=== PATIENT | female | born 1960 | race Caucasian/White ===

== ENCOUNTER 2017-01-19 13:52 | Outpatient (CLI) | payer OTHER ==
--- NOTE | 2017-01-19 15:49 | MMO ---
BILATERAL DIGITAL SCREENING MAMMOGRAMS: HISTORY: A 56-year-old female who presents for baseline digital screening mammography. This patient's mammogram is interpreted with the assistance of computer-aided detection. The breasts are heterogeneously dense, which can obscure small masses. There is an occasional typica lly benign calcification. No direct or indirect evidence of malignancy. IMPRESSION: BI-RADS category 2, benign findings. Continued routine screening. POS: [facility]
== END 2017-01-19 13:53 | disposition home or self-care (01) ==
LOC: SCSMAMMO 13:52
PROVIDERS: ATTEND Family Medicine
DX: Z12.31 Encounter for screening mammogram for malignant neoplasm of breast (principal); Z00.00 Encounter for general adult medical examination without abnormal findings
CPT/HCPCS: 77067; G0202

== ENCOUNTER 2017-04-25 14:32 | Inpatient (IN) | payer OTHER ==
[2017-04-25] MEDS ORDERED: Ondansetron HCl/PF 4 MG/2 ML Vial ONE ×2 (14:54→15:50)
[2017-04-25 15:15] LABS: #Basophils 0.1 thou/uL (0.0-0.2); #Monocytes 0.7 thou/uL (0.11-0.59); #Neutrophils 2.7 thou/uL (1.40-6.50); %Basophils 1.3 % (0.0-1.0); %Eosinophils 0.8 % (0.0-10.0); %Lymphocytes 36.8 % (21.0-51.0); %Monocytes 11.9 % (0.0-10.0); %Neutrophils 49.2 % (42.0-75.0); Hemoglobin 13.3 g/dL (12.0-16.0); Mean Corpuscular HGB CONC 34.4 g/dL (32.0-36.0); Mean Corpuscular Hemoglobin 33.4 pg (27.0-31.0); Mean Corpuscular Volume 97.1 fl (81.0-99.0); Mean Platelet Volume 6.7 fL (7.4-10.4); Platelet Count 357 thou/uL (130-400); RBC Distribution Width 11.2 % (11.5-14.5); Red Blood Cell (RBC) Count 3.97 mill/uL (4.20-5.40); White Blood Cell (WBC) Count 5.5 thou/uL (4.8-10.8)
[2017-04-25 15:29] LABS: ALT (SGPT) 25 U/L (8-55); AST (SGOT) 18 U/L (5-34); Albumin 4.8 g/dL (3.5-5.0); Alkaline Phosphatase 57 U/L (40-150); Anion Gap 16 mmol/L (10-20); BUN (Urea Nitrogen) 11 mg/dL (9.8-20.1); Bilirubin, Total 0.4 mg/dL (0.2-1.2); Calc. Creatinine Clearance 0 mL/min (70-130); Calcium 10.4 mg/dL (7.8-10.44); Carbon Dioxide 25 mmol/L (22-29); Chloride 99 mmol/L (98-107); Estimated GFR-MDRD 61; Globulin 3.4 g/dL (2.4-3.5); Glucose 108 mg/dL (70-105); Potassium 3.9 mmol/L (3.5-5.1); Protein, Total 8.2 g/dL (6.0-8.3); Sodium 136 mmol/L (136-145)
[2017-04-25] MEDS ORDERED: PROPOFOL 200 MG/20 ML VIAL ONE (15:50)
[2017-04-25] MEDS ORDERED: Lidocaine 1% PF 5 ML VIAL ONE (15:50)
[2017-04-25] MEDS ORDERED: Succinylcholine Chloride 20 MG/ML 10 ml SYRINGE FS ONE (15:50)
[2017-04-25] MEDS ORDERED: ePHEDrine/0.9% NaCl/PF SYRINGE 50 mg/10 ml ONE (15:50)
[2017-04-25] MEDS ORDERED: CEFAZOLIN/Water 2 GM/20 ML SYRINGE SLOW IVP SCH (16:30)
--- NOTE | 2017-04-25 16:30 | RAD ---
PORTABLE LEFT KNEE 2 VIEWS: Date: 04/25/17 HISTORY: Trauma. Left knee pain. FINDINGS/IMPRESSION: No definite fracature or dislocation is seen. POS: [facility]
--- NOTE | 2017-04-25 16:39 | RAD ---
LEFT LEG 2 VIEWS LEFT ANKLE 2 VIEWS LEFT FOOT 2 VIEWS: Date: HISTORY: Trauma, left leg pain, left ankle pain, left foot pain. FINDINGS/IMPRESSION: There is a mildly displaced oblique fracture involving the mid shaft of the left tibia. There is a no ndisplaced fracture involving the distal shaft of the left tibia. The distal tibial fracture appears to extend to the articular surface. The ankle mortise is maintained. A plantar calcaneal spur is pres ent. There is a questionable fracture involving the head of the proximal phalanx of the fifth digit o f the left foot. Clinical correlation is recommended. POS: [facility]
--- NOTE | 2017-04-25 16:40 | RAD ---
PORTABLE CHEST 1 VIEW: Date: 04/25/17 Time: 1454 hours HISTORY: Trauma. Chest pain. FINDINGS: The heart size is normal. The lungs are well expanded without confluent areas of consolidation, pneum othorax, or pleural effusions. IMPRESSION: No acute process. POS: [facility]
--- NOTE | 2017-04-25 16:56 | CON ---
DATE OF CONSULTATION: 04/25/2017 REQUESTING PHYSICIAN: Dr. Jamshid Villalba. HISTORY OF PRESENT ILLNESS: The patient is a pleasant 56-year-old lady who is accompanied by her fam gagandeep for evaluation of left lower leg injury. She reports that earlier today, she was in the process of "trying out" for a local women's roller derby team when she sustained a twisting injury to the lef t ankle. She reports immediate pain and inability to ambulate. Upon arrival at [facility], x-rays were obtained that revealed a spiral fracture of the left tibial shaft as well as a nondispla jaimie fracture of the left lateral malleolus. With these findings, orthopedic consultation requested. The patient denies any loss of consciousness. PAST MEDICAL HISTORY: Remarkable for mild hypertension, which currently is controlled with diet. PAST SURGICAL HISTORY: Includes tubal ligation and dental procedures. MEDICATIONS: None. ALLERGIES: None known. SOCIAL HISTORY: She drinks socially on a weekly basis. Denies recreational drug use and has no hist ory of cigarette smoking. FAMILY HISTORY: Noncontributory. REVIEW OF SYSTEMS: Denies recent fevers, chills, or sweats. Denies chest pain or shortness of breat h. Denies numbness or tingling in the lower extremity. PHYSICAL EXAMINATION: VITAL SIGNS: Temperature 99, heart rate 76, respiratory rate of 20, blood pressure 151/79, O2 satura tions 99% on room air. HEENT: Atraumatic, normocephalic. HEART: Shows a regular rate and rhythm without murmur. LUNGS: Clear to auscultation bilaterally with good breath sounds. Chest wall is nontender. ABDOMEN: Flat and nontender with normal bowel sounds. Pelvis is stable to compression. EXTREMITIES: Remarkable for bilateral upper extremities that are atraumatic. Right lower extremity that is also atraumatic. A left lower extremity with some mild swelling of the lower leg, although s he is able to wiggle her toes and has intact subjective sensation over both the dorsal and plantar martini rface of the foot. The knee and hip appear atraumatic. X-rays were obtained of the left foot, left ankle, left leg, and left knee these were remarkable for a spiral fracture of the tibia beginning at the mid shaft and spiraling towards the ankle. There als o appears to be a vertical fracture of the lateral malleolus, which is nondisplaced and a small irreg ularity of the proximal phalanx of the small toe; however, the patient is completely nontender there, and she does report a significant past history of toe injuries and I believe this is an older injury . LABORATORY: CBC and metabolic panel pending. ASSESSMENT: A 56-year-old lady status post roller derby injury sustaining a closed spiral fracture o f left tibial shaft with nondisplaced fracture of fibula. PLAN: At this time, the patient will be admitted to the Trauma Service. Today, I discussed with wiliam marr the risks and benefits of intramedullary nail and limited open reduction internal fixation. The risks include, but are not limited to bleeding, infection, nerve injury, DVT, PE, malunion, nonunion , loss of limb or life. The patient appears to understand and does wish to proceed. Consent will be obtained prior to surgery. We will keep the patient n.p.o. since she ate at noon. We will anticipa te surgery later this evening. I believe all questions have been answered.
--- NOTE | 2017-04-25 17:22 | HP ---
DATE OF ADMISSION: 04/25/2017 REQUESTING PHYSICIAN: Dr. Bruce Ribeiro. ADMITTING PHYSICIAN: Dr. Jamshid Villalba. CONSULTING PHYSICIAN: Dr. Bruce Mackey. HISTORY OF PRESENT ILLNESS: The patient is a 56-year-old female who was involved in a local roller derby tryouts today when she was going [place] the [employer] [place] and fell landing on her left side. She immediately felt pain in the left lower leg. She was transported to [facility] as a Level II trauma evaluation. Workup identified a left tibia fibula fracture. She remained hemodynamically stable and neurologically intact. She complains of pain in the anterior mid tibia. Pain is exacerbated by movement. Pain is alleviated by nothing. She is neurovascularly intact. Trauma Services has been consulted for admission and management. Dr. Mackey., Orthopedics, has been consulted. PAST MEDICAL HISTORY: Prehypertension, controlled with weight loss and diet. PAST SURGICAL HISTORY: Bilateral tubal ligation. SOCIAL HISTORY: Alcohol, 2-3 glasses of wine, every other day. Denies drug use. Denies tobacco use. ALLERGIES: No known drug allergies. CURRENT MEDICATIONS: The patient takes multiple multivitamins and over the counter herbal and vitamin supplements. REVIEW OF SYSTEMS: Constitutional: Denies fever, chills, recent weight loss, or general malaise. HEENT: Denies any complaints. Respiratory: Denies wheezing, cough, shortness of breath. Cardiovascular: Denies chest pain, palpitation, syncope. Abdomen: Denies abdominal pain, nausea, vomiting, diarrhea or constipation. Skin: Denies trauma, rashes. Neurologic: Denies focal weakness, seizures, headaches. Psychiatric: Denies anxiety or depression. Musculoskeletal: Reports pain in left lower mid leg. LABORATORY DATA: Hematology: WBC 5.5, RBC 3.97, hemoglobin 13.3, hematocrit 38.6, platelets 357. Chemistry: Sodium 136, potassium 3.9, chloride 99, CO2 of 25, BUN 11, creatinine 0.95, glucose 108. EKG: NSR DIAGNOSTIC IMAGING: Nondisplaced fracture involving the distal shaft of the left tibia. PHYSICAL EXAMINATION: CONSTITUTIONAL: A 56-year-old female, sitting on bed, in no acute distress, nontoxic appearing. HEENT: Atraumatic, normocephalic. No posterior neck pain. Trachea midline. No JVD. RESPIRATORY: Bilateral breath sounds clear. No respiratory distress. CARDIOVASCULAR: Regular rate and rhythm. Heart sounds normal. ABDOMEN: Soft, nontender, nondistended. Bowel sounds normal. BACK: Normal to inspection. No spinal tenderness to palpation. NEUROLOGIC: GCS is 15. Awake, alert, oriented x3. No focal weakness. EXTREMITIES: Bilateral upper extremities and right lower extremity, neurovascularly intact. Cap refill brisk. Moves extremities well. Left lower extremity pain to mid lower leg. Pain increased with movement. Neurovascularly intact. Cap refill brisk. PSYCHIATRIC: Normal mood and affect. ASSESSMENT: 1. Status post fall from roller skates during roller derby. 2. Left tibia fracture. 3. Acute traumatic pain. PLAN: 1. Admit to the hospital by the Trauma Service. 2. Consult Orthopedic Service, Dr. Mackey. 3. Dr. Mackey plans to take the patient to OR later tonight. 4. N.p.o. and IV fluids. 5. IV Tylenol and IV morphine for analgesia. 6. PUD prophylaxis. 7. No chemical DVT prophylaxis until cleared by Orthopedic Service. 8. Case management for discharge planning. Plan was discussed with the patient and at bedside, both in agreement with recommendations. This patient was reviewed with Dr. Villalba at time of this dictation. [facility]
[2017-04-25] MEDS ORDERED: Fentanyl 100 MCG/2 ML VIAL ONE ×3 (18:43→22:17)
[2017-04-25] MEDS ORDERED: Midazolam HCl 2 mg/2 ml Vial ONE (20:13)
[2017-04-25] MEDS ORDERED: Promethazine HCl 25 MG/ML VIAL SLOW IVP PRN (22:02)
[2017-04-25] MEDS ORDERED: Ondansetron HCl/PF 4 MG/2 ML Vial IVP PRN (22:02)
[2017-04-25] MEDS ORDERED: Promethazine HCl 25 MG/ML VIAL IM PRN (22:02)
--- NOTE | 2017-04-25 22:41 | RAD ---
LEFT TIBIA AND FIBULA: Date: 04/25/17 Six fluoroscopic views from OR. INDICATION: Intraoperative imaging during open reduction and internal fixation procedure. FINDINGS/IMPRESSION: Intramedullary jailene has been placed transfixing the tibia. POS: [facility]
[2017-04-25] MEDS ORDERED: HYDROcodone/Acetaminophen 10/325 mg Tablet PO PRN (23:11)
[2017-04-25] MEDS ORDERED: Dextrose 50% Abboject 50 ML SYRINGE SLOW IVP PRN (23:11)
[2017-04-25] MEDS ORDERED: Dextrose 5% in Water 1,000 ML IV PRN (23:11)
[2017-04-25] MEDS: HYDROcodone/Acetaminophen 10/325 mg Tablet PO PRN (23:33)
[2017-04-25] MEDS: CEFAZOLIN/Water 2 GM/20 ML SYRINGE SLOW IVP SCH (23:40)
[2017-04-26] MEDS: Sodium Chloride 0.9% 1,000 ML IV SCH ×2 (00:11→09:07)
[2017-04-26] MEDS: Ondansetron HCl/PF 4 MG/2 ML Vial IVP PRN ×2 (00:39→06:01)
[2017-04-26 03:27] VITALS: BMI 27.2
[2017-04-26] MEDS: HYDROcodone/Acetaminophen 10/325 mg Tablet PO PRN ×4 (05:20→22:48)
[2017-04-26 05:50] LABS: #Lymphocytes 1.8 thou/uL (1.20-3.40); #Monocytes 0.7 thou/uL (0.11-0.59); #Neutrophils 4.6 thou/uL (1.40-6.50); %Basophils 0.6 % (0.0-1.0); %Eosinophils 0.3 % (0.0-10.0); %Lymphocytes 24.8 % (21.0-51.0); %Neutrophils 64.5 % (42.0-75.0); Hemoglobin 10.3 g/dL (12.0-16.0); Mean Corpuscular HGB CONC 33.6 g/dL (32.0-36.0); Mean Corpuscular Hemoglobin 33.2 pg (27.0-31.0); Mean Corpuscular Volume 98.7 fl (81.0-99.0); Mean Platelet Volume 6.7 fL (7.4-10.4); Platelet Count 263 thou/uL (130-400); RBC Distribution Width 11.3 % (11.5-14.5); Red Blood Cell (RBC) Count 3.11 mill/uL (4.20-5.40); White Blood Cell (WBC) Count 7.1 thou/uL (4.8-10.8)
[2017-04-26] MEDS: Famotidine/PF 20 mg/2ml Vial SLOW IVP SCH ×2 (08:20→20:07)
[2017-04-26] MEDS: CEFAZOLIN/Water 2 GM/20 ML SYRINGE SLOW IVP SCH (08:20)
[2017-04-26] MEDS ORDERED: Ibuprofen 600 MG TAB PO PRN (08:47)
--- NOTE | 2017-04-26 09:00 | OP ---
DATE OF PROCEDURE: 04/25/2017 PREOPERATIVE DIAGNOSIS: Left tibial shaft fracture with nondisplaced lateral malleolus fracture. POSTOPERATIVE DIAGNOSIS: Left tibial shaft fracture with nondisplaced lateral malleolus fracture. SURGICAL PROCEDURES: 1. Intramedullary nail stabilization of left tibial shaft. 2. Closed treatment of left lateral malleolus fracture. ANESTHESIA: General. SURGEON: Bruce Mackey M.D. TOURNIQUET TIME: Zero. ESTIMATED BLOOD LOSS: 75 mL. IMPLANTS: Synthes X nail measuring 10 x 345 mm with 4 or 5 mm cross lock screws. COMPLICATIONS: None. DRAINS: None. SPECIMEN: None. OUTCOME: Near anatomic alignment. INDICATIONS: The patient is a 56-year-old lady who was in the process of trying out for a local [facility] team when she sustained a twisting injury to the left lower extremity. Upon arrival at [facility], she was found to have a spiral fracture of the left tibial shaft with extension down towards the distal tibial metaphysis as well as a nondisplaced fracture of the lateral malleolus. After disc ussion with patient including risks and benefits, we decided to proceed with intramedullary nail stab ilization of the tibia and if indicated, open reduction and internal fixation of the lateral malleolu s. Informed consent has been obtained. I believe all questions have been answered. DESCRIPTION OF PROCEDURE: The patient was brought to the operating room and a timeout performed foll owed by induction of general anesthesia. Next, patient was positioned on the fracture table with the well leg held in extension and the injured extremity held over a bolster at the thigh with knee flex ed to about 80 degrees in longitudinal traction applied on the tibia. C-arm images were then obtaine d that showed near anatomic alignment with this setup. A sterile prep and drape was then performed o f the left lower extremity. Next, a vertical incision was made over the patellar tendon. After skin was sharply incised, dissection was carried down to the underlying peritenon. This was then incised in line with the skin incision and reflected medially and laterally. Next, a medial parapatellar ap proach to the proximal tibia was chosen. This was then followed by insertion of a threaded guidewire into the intramedullary canal of the tibia. The opening reamer was then passed over this guidewire. Next, a ball-tip guidewire was passed down the shaft of the tibia across the fracture in the distal tibial metaphyseal region. Measurement of this guidewire was performed and it was felt that a 345 m m nail would be of appropriate length. Next, reaming was started at 8.5 mm and continued sequentiall y up to 11.5 mm. This is achieving good cortical chatter at the isthmus. Next, a 10 x 345 mm Synthe s nail was passed over the guidewire and under C-arm guidance delivered into the distal tibial metaph ysis. Next, using free hand technique, two small stab wounds were made along the medial aspect of th e distal tibia and then cross lock screws applied without difficulty. This was then followed by back slapping to compress the fracture and then 2 proximal cross lock screws were inserted using the prox imal jig. At the completion of this, AP, lateral C-arm images were obtained of the left tibia as wel l as AP, lateral, and mortise views of the ankle. These x-rays show a lateral malleolus fracture zeb t is anatomically aligned with absolutely no displacement and as such, it was decided not to proceed with surgical stabilization of this fractured lateral malleolus. As such, each of the incision sites was irrigated with normal saline. Three small stab wounds for the cross lock screws were closed wit h ameena. The midline anterior knee wound was closed in layers with 0 Vicryl for the peritenon, 2-0 Vicryl subcutaneously, and ameena for the skin. A Xeroform gauze, Webril, and fiberglass splint wa s applied to the leg and then patient was transferred to recovery room in stable condition. There we re no complications. She tolerated the procedure well.
[2017-04-26] MEDS: Aspirin 81 mg Enteric Coated Tablet PO SCH ×2 (09:29→20:27)
--- NOTE | 2017-04-26 11:51 | PRG ---
DATE OF SERVICE: 04/26/2017 ATTENDING PHYSICIAN: Dr. Juan Perry. SUBJECTIVE: Ms. Varela is a 56-year-old female who sustained a fall from a skate while in a roller derby yesterday. She was transported to [facility] where a left tibial shaft fracture was identified. She was taken to the operating room by Dr. Mackey last night for fixation of fracture. She has since been stable in the surgical floor and pain has been well controlled. She is seen this morning on morning rounds, sitting up in bed in no acute distress. OBJECTIVE: VITAL SIGNS: Temperature 98.4, pulse 71, respirations 18, O2 sat 96% on room air, blood pressure 117/67. CONSTITUTIONAL: Well-nourished, well-developed female sitting up in bed in no acute distress. PULMONARY: Bilateral breath sounds clear to auscultation. No respiratory distress. CARDIOVASCULAR: Regular rate and rhythm. Heart sounds normal. ABDOMEN: Soft, nontender, and nondistended. EXTREMITIES: Splint to left lower extremity. All extremities are neurovascularly intact. Cap refill brisk. Denies any sensory or motor deficit. NEUROLOGIC: GCS 15. Awake, alert, oriented x3. ASSESSMENT: 1. Status post fall from a skate during roller derby. 2. Left tibia fracture. 3. Status post fixation of left lower extremity fracture. 4. Acute traumatic pain well controlled. PLAN: 1. Continue orders on surgical floor. 2. PT, OT with orthopedic restrictions. 3. Aspirin for DVT prophylaxis. 4. Pepcid for PUD prophylaxis. 5. The patient is on hydrocodone for pain. We will discontinue morphine IV. 6. Discontinue IV fluids and continue regular diet. The patient was seen and examined with Dr. Perry who agrees with the assessment and plan. MTDD
--- NOTE | 2017-04-26 11:54 | PRG ---
DATE OF SERVICE: 04/26/2017 SUBJECTIVE: Ms. Varela is a 56-year-old woman who was involved in roller derby related accident. T he patient suffered a fall, related a left tibia and left lateral malleolar fractures. This morning, she is awake and alert. Her Arvind coma scale is 15. She reported adequate pain control. She moves the rest of her extremities without incident. OBJECTIVE: VITAL SIGNS: Included blood pressure 117/67, pulse 71, respiratory rate 18, temperature 98.4 degrees Fahrenheit, oxygen saturation 96% on room air. HEENT: Reveals normocephalic and atraumatic. HEART: Reveals regular rate and rhythm, no murmurs or gallops auscultated. CHEST: Clear to auscultation bilaterally. CARDIOVASCULAR: Regular and unlabored. ABDOMEN: Soft, nontender, nondistended. Bowel sounds in all 4 quadrants appear normoactive. EXTREMITIES: There are 2+ radial and pedal pulses bilaterally. Left lower extremity is immobilized in a splint. NEUROLOGIC: The patient is alert. Hernandez coma scale of 15. Cranial nerves II-XII grossly intact b ilaterally. No focal deficits are present. MUSCULOSKELETAL: Reveals 5/5 muscle strength in bilateral upper and right lower extremities. Range of motion about the left lower extremity is restricted due to painful deformity. Thoracic and lumbar spine are nontender to palpation. LABORATORY DATA: Today includes a CBC with 7100 white blood cells, hemoglobin and hematocrit 10.3 an d 30.7 respectively. Platelet count 263,000. Metabolic profile was not obtained this morning. IMPRESSION: 1. Post-admission day #1 status post ground level fall from a roller derby accident. 2. Left tibia and left lateral malleolar fractures. PLAN: Operative intervention per Orthopedic Surgery with regards to the left lower extremity fractur es. The patient is otherwise hemodynamically stable. Physical therapy will be initiated postoperatively.
[2017-04-26] MEDS ORDERED: Ondansetron ODT 4 MG TAB PO PRN (11:55)
[2017-04-26] MEDS ORDERED: Sodium Chloride 0.65% Nasal 44 ML BOT EA NARE PRN (16:49)
[2017-04-26] MEDS ORDERED: Ibuprofen 600 MG TAB PO SCH (22:30)
--- NOTE | 2017-04-27 00:08 | PRG ---
DATE OF SERVICE: 04/26/2017 SUBJECTIVE: This is a 56-year-old female status post roller derby accident and fall, resulting in le ft tibia and lateral malleolar fractures. The patient is postop day #0, status post repair of these injuries. Upon my evaluation, the patient is mobilizing in her room with the use of crutches and voc alized no complaint. She states her pain has been controlled with p.o. analgesics. OBJECTIVE: VITAL SIGNS: Reviewed and stable. GENERAL: The patient is afebrile, in no acute distress. RESPIRATORY: Breathing is nonlabored. EXTREMITIES: Orthopedic dressing is clean, dry and intact. ASSESSMENT AND PLAN: As documented in daily progress note. Continue care as ordered. Continue to m onitor. If patient's pain remains controlled and she is cleared from a PT standpoint, consider disch arge after discussion with Orthopedic Surgery in the a.m.
[2017-04-27] MEDS: HYDROcodone/Acetaminophen 10/325 mg Tablet PO PRN ×2 (02:43→06:20)
[2017-04-27 04:06] LABS: #Eosinphils 0.1 thou/uL (0.0-0.7); #Lymphocytes 2.4 thou/uL (1.20-3.40); #Monocytes 0.9 thou/uL (0.11-0.59); #Neutrophils 3.3 thou/uL (1.40-6.50); %Basophils 0.7 % (0.0-1.0); %Eosinophils 1.8 % (0.0-10.0); %Lymphocytes 35.6 % (21.0-51.0); %Monocytes 13.2 % (0.0-10.0); %Neutrophils 48.8 % (42.0-75.0); Hemoglobin 9.6 g/dL (12.0-16.0); Mean Corpuscular HGB CONC 33.2 g/dL (32.0-36.0); Mean Corpuscular Hemoglobin 32.7 pg (27.0-31.0); Mean Corpuscular Volume 98.4 fl (81.0-99.0); Mean Platelet Volume 6.4 fL (7.4-10.4); Platelet Count 249 thou/uL (130-400); RBC Distribution Width 11.1 % (11.5-14.5); Red Blood Cell (RBC) Count 2.92 mill/uL (4.20-5.40); White Blood Cell (WBC) Count 6.9 thou/uL (4.8-10.8)
[2017-04-27] MEDS ORDERED: Ibuprofen 600 MG TAB PO SCH (06:00)
[2017-04-27] MEDS: Aspirin 81 mg Enteric Coated Tablet PO SCH (09:10)
[2017-04-27] MEDS: Famotidine/PF 20 mg/2ml Vial SLOW IVP SCH (09:11)
[2017-04-27 13:12] VITALS: BP 118/55; TEMP 98.4
[2017-04-27] MEDS ORDERED: Famotidine 20 MG TAB PO SCH (21:00)
--- NOTE | 2017-04-28 01:53 | DIS ---
DATE OF ADMISSION: 04/25/2017 DATE OF DISCHARGE: 04/27/2017 ADMITTING PHYSICIAN: Jamshid Villalba MD DISCHARGING PHYSICIAN: Juan Perry DO CONSULTING PHYSICIAN: Bruce Mackey MD CHIEF COMPLAINT: Evaluation of left leg pain status post fall. HOSPITAL COURSE: The patient is a 56-year-old female who was involved in a local roller derby tryout when she fell landing on her left side. She was transported to the [facility] as a level 2 traum a activation. X-rays of the tibia and fibula as well as ankle show a mildly displaced oblique fractu re involving the midshaft of the left tibia, as well as a nondisplaced fracture involving the distal shaft of left tibia. Additionally, there was a questionable fracture of the head of the proximal pha lanx of the fifth digit of the left foot. Trauma services was asked to admit and Orthopedics was con sulted for surgical fixation of her left foot. The patient underwent intramedullary nail fixation of her left tibia on 04/26/2017. She tolerated the procedure well and was discharged home in stable co ndition after receiving crutch training on 04/27/2017. ADMISSION DIAGNOSIS: Left tibial shaft fracture with nondisplaced lateral malleolus fracture. DISCHARGE DIAGNOSES: Left tibial shaft fracture with nondisplaced lateral malleolus fracture, status post intramedullary nail stabilization of the left tibial shaft and closed treatment of left lateral malleolus fracture. DISCHARGE MEDICATIONS: The patient was discharged home with a prescription for hydrocodone/APAP 12/01 25, 1-2 tabs every 4 hours as needed for pain. The patient was also given a prescription for tramado l 50 mg tablets 1 p.o. q.6 hours as needed for pain. ACTIVITY RESTRICTIONS: The patient has orthopedic limitations, no weightbearing to the left lower ex tremity. NOURISHMENT INSTRUCTIONS: No restrictions. The patient may begin a regular diet. EQUIPMENT AND SUPPLY INSTRUCTIONS: The patient was given crutches and instructed in their use. FOLLOWUP INSTRUCTIONS: The patient is to follow up with Dr. Bruce Mackey in 14 days. The patien t was also instructed to follow up with her PCP as needed. This patient was seen and examined along with Dr. Juan Pace, who agrees with the discharge yonatan n.
--- NOTE | 2017-05-01 15:16 | EKG ---
Test Reason : Blood Pressure : / mmHG Vent. Rate : 079 BPM Atrial Rate : 079 BPM P-R Int : 156 ms QRS Dur : 090 ms QT Int : 402 ms P-R-T Axes : 060 -19 050 degrees QTc Int : 460 ms Normal sinus rhythm Inferior infarct , age undetermined Abnormal ECG Confirmed by XANDER MCARTHUR ([id number]), development editor YOLANDA FULLER ([id number]) on 05/01/2017 3:16:13 PM Referred By: Confirmed By:XANDER MCARTHUR
== END 2017-04-27 15:20 | disposition home or self-care (01) | DRG 494 ==
LOC: ERS 14:32 → SURG B 22:48
PROVIDERS: ADMIT Specialist; ATTEND Specialist
PROC: 0QHH36Z Insertion of Intramedullary Internal Fixation Device into Left Tibia, Percutaneous Approach (ICD-10-PCS; principal; 2017-04-25)
DX: S82.202A Unspecified fracture of shaft of left tibia, initial encounter for closed fracture (principal); I10 Essential (primary) hypertension; R40.2410 Glasgow coma scale score 13-15, unspecified time; S82.65XA Nondisplaced fracture of lateral malleolus of left fibula, initial encounter for closed fracture; W18.30XA Fall on same level, unspecified, initial encounter; Y93.21 Activity, ice skating
CPT/HCPCS: 27752; 36415; 71045; 76001; 80053; 85025; 86850; 86900; 86901; 93005; 94760; 96361; 96374; 96375; C1713; C1769; G0390; G8978-GP-CL; G8979-GP-CK; G8987-GO-CK; G8988-GO-CJ; J2001; J2250; J2270; J2405; J2704; J3010; S0028

== ENCOUNTER 2020-03-04 11:56 | Outpatient (CLI) | payer OTHER ==
--- NOTE | 2020-03-04 13:04 | MMO ---
Bilateral MAMMO Bilat Screen [facility]. CLINICAL HISTORY: Patient is 59 years old and is seen for screening. The patient has no family history of breast cancer. The patient has no personal history of cancer. VIEWS: The views performed were: bilateral craniocaudal with tomosynthesis and bilateral mediolateral oblique with tomosynthesis. FILMS COMPARED: The present examination has been compared to a prior imaging study performed at [facility] on 01/19/2017. This study has been interpreted with the assistance of computer-aided detection. MAMMOGRAM FINDINGS: The breasts are extremely dense, which may lower the sensitivity of mammography. There are stable vascular calcifications seen in both breasts. There are no suspicious masses, suspicious calcifications, or new areas of architectural distortion. IMPRESSION: THERE IS NO MAMMOGRAPHIC EVIDENCE OF MALIGNANCY. A ROUTINE FOLLOW-UP MAMMOGRAM IN 1 YEAR IS RECOMMENDED. THE RESULTS OF THIS EXAM WERE SENT TO THE PATIENT. ACR BI-RADS Category 2 - Benign finding MAMMOGRAPHY NOTE: 1. A negative mammogram report should not delay a biopsy if a dominant of clinically suspicious mass is present. 2. Approximately 10% to 15% of breast cancers are not detected by mammography. 3. Adenosis and dense breasts may obscure an underlying neoplasm. Reported by: JOHN MERCHANT MD Electonically Signed: [id number]
== END 2020-03-04 11:57 | disposition home or self-care (01) ==
LOC: BICMAMMO 11:56
PROVIDERS: ATTEND Family Medicine
DX: Z12.31 Encounter for screening mammogram for malignant neoplasm of breast (principal)
CPT/HCPCS: 77063; 77067